=== PATIENT | male | born 1980 | race African-American/Black ===

== ENCOUNTER 2017-10-05 20:08 | Inpatient (IN) | payer SELFPAY ==
[~2017-10-05 20:08] MED LIST: ISOVUE-370 76%-LOCM 1 ML ONE
[2017-10-05 20:27] LABS: #Basophils 0.1 thou/uL (0.0-0.2); #Lymphocytes 2.4 thou/uL (1.20-3.40); #Monocytes 0.4 thou/uL (0.11-0.59); %Basophils 1.1 % (0.0-1.0); %Eosinophils 0.7 % (0.0-10.0); %Lymphocytes 34.6 % (21.0-51.0); %Monocytes 6.1 % (0.0-10.0); %Neutrophils 57.5 % (42.0-75.0); Hemoglobin 17.2 g/dL (14.0-18.0); Mean Corpuscular HGB CONC 32.9 g/dL (32.0-36.0); Mean Corpuscular Volume 94.3 fl (80.0-94.0); Mean Platelet Volume 7.3 fL (7.4-10.4); Platelet Count 191 thou/uL (130-400); RBC Distribution Width 12.4 % (11.5-14.5); Red Blood Cell (RBC) Count 5.55 mill/uL (4.70-6.10)
[2017-10-05 20:34] LABS: INR-International Normal Ratio 1.1; Prothrombin Time 14.8 SEC (12.0-14.7)
[2017-10-05 20:44] LABS: ALT (SGPT) 49 U/L (8-55); AST (SGOT) 83 U/L (5-34); Albumin 4.6 g/dL (3.5-5.0); Alcohol 35 mg/dL (Less than 10); Alkaline Phosphatase 75 U/L (40-150); Anion Gap 17 mmol/L (10-20); BUN (Urea Nitrogen) 12 mg/dL (8.9-20.6); Bilirubin, Total 0.8 mg/dL (0.2-1.2); Calc. Creatinine Clearance 0 mL/min (70-130); Calcium 9.6 mg/dL (7.8-10.44); Carbon Dioxide 23 mmol/L (22-29); Chloride 102 mmol/L (98-107); Estimated GFR-MDRD 57; Globulin 3.1 g/dL (2.4-3.5); Glucose 80 mg/dL (70-105); Potassium 3.9 mmol/L (3.5-5.1); Protein, Total 7.7 g/dL (6.0-8.3); Sodium 138 mmol/L (136-145)
[2017-10-05] MEDS ORDERED: fentaNYL Citrate/PF 2,000 MCG in Sodium Chloride 0.9% 60 ML IV SCH ×2 (20:45→21:40)
[2017-10-05 20:56] LABS: Acetaminophen Less than 6.0 mcg/mL (10.0-30.0); Alcohol 35 mg/dL (Less than 10); Salicylate Less than 8.0 mg/dL (15.0-30.0)
[2017-10-05] MEDS ORDERED: Propofol 1,000 MG/100 ML VIAL IV PRN (20:57)
[2017-10-05] MEDS ORDERED: Ondansetron ODT 4 MG TAB PO PRN (20:59)
[2017-10-05] MEDS ORDERED: Dextrose 5% in Water 1,000 ML IV PRN (20:59)
[2017-10-05] MEDS ORDERED: Dextrose 50% Abboject 50 ML SYRINGE SLOW IVP PRN (20:59)
[2017-10-05] MEDS ORDERED: Fentanyl 100 MCG/2 ML VIAL ONE (21:00)
[2017-10-05] MEDS ORDERED: Fentanyl CADD 250 ML IVPB SCH (21:00)
[2017-10-05] MEDS ORDERED: hydrALAZINE 20 MG/ML VIAL SLOW IVP PRN (21:05)
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
[2017-10-05 21:08] LABS: Bilirubin Negative (Negative); Blood, Urine Large (Negative); Clarity CLOUDY (Clear); Glucose, Urine (Dipstick) Negative (Negative); Leukocyte Negative (Negative); Nitrite Negative (Negative); Protein, Urine (Dipstick) 100 mg/dL (Neg-Trace)
[2017-10-05 21:11] LABS: RBC/HPF 21-50 HPF (0-3)
[2017-10-05 21:11] LABS: CO2 Tension 46.6 mmHg (35.0-45.0); Hematocrit-ABG 50.9 % (42.0-52.0); O2 Tension (PaO2) 131.5 mmHg (80.0-100.0); pH, Arterial 7.35 (7.35-7.45)
[2017-10-05 21:12] LABS: Analyzer IN Cardio ER; Calcium, Ionized 1.2 mmol/L (1.12-1.30); Hemoglobin (Hb) 16.1 g/dL (14.0-18.0); Puncture Site LRA
[2017-10-05 21:13] LABS: Pathc Cast-AUWi Flag 5.96 (0-2.49); Yeast-AUWi Flag 48.9 (0-25.0)
[2017-10-05] MEDS ORDERED: Propofol 1,000 MG/100 ML VIAL IV ONE (21:14)
[2017-10-05 21:18] LABS: Amphetamine Not Detected (NotDetected); Barbiturates Screen Not Detected (NotDetected); Benzodiazepine Screen Not Detected (NotDetected); Cocaine Metabolite Screen Not Detected (NotDetected); Medtox Control Line Valid? VALID (VALID); Medtox Reader # READER 4; Methadone Not Detected (NotDetected); Methamphetamine Not Detected (NotDetected); Opiate Screen Not Detected (NotDetected); Oxycodone Screen Not Detected (NotDetected); Phencyclidine (PCP) Not Detected (NotDetected); THC/Cannabinoid Screen Detected (NotDetected); Tricyclic Screen Not Detected (NotDetected)
[2017-10-05 21:20] LABS: Bacteria/HPF Rare-Few HPF (None Seen); Hyaline Casts/LPF 0-3 HYALINE CAST LPF (0-3 Hyaline); Manual Microscopic Reviewed? No Path Casts Seen; Renal Epithelial None Seen HPF (0-3); Transitional Epithelial NONE SEEN HPF (0-3); Yeast-All Forms None Seen HPF (None Seen)
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
[2017-10-05] MEDS ORDERED: Midazolam HCl 5 mg/ml Vial ONE ×2 (21:34→22:01)
[2017-10-05] MEDS ORDERED: Sedation Protocol FS ONE (21:34)
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
[2017-10-05] MEDS ORDERED: DISCONTINUE PREVIOUS NARCOTIC PAIN MEDICATIONS AND BENZODIAZEPINES FS SCH (21:40)
[2017-10-05] MEDS ORDERED: Morphine 2 MG/ML SYRINGE SLOW IVP PRN (21:40)
[2017-10-05] MEDS ORDERED: Fentanyl BOLUS 250 ML IVPB PRN (21:40)
[2017-10-05] MEDS ORDERED: Lorazepam 2 MG/ML VIAL SLOW IVP PRN (21:40)
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
[2017-10-05] MEDS: Sodium Chloride 0.9% 1,000 ML IV SCH (22:35)
[2017-10-05] MEDS: Famotidine/PF 20 mg/2ml Vial SLOW IVP SCH (22:36)
[2017-10-05] MEDS: Propofol 1,000 MG/100 ML VIAL IV PRN (22:43)
[2017-10-05 22:54] VITALS: BMI 20.8
[2017-10-06 00:26] LABS: Lactic Acid 2.5 mmol/L (0.5-2.2)
[2017-10-06] MEDS: Sodium Chloride 0.9% 1,000 ML IV SCH ×2 (03:10→11:25)
[2017-10-06] MEDS: Propofol 1,000 MG/100 ML VIAL IV PRN ×2 (03:10→06:39)
[2017-10-06] MEDS ORDERED: Sodium Chloride 0.9% 500 ML IV SCH (03:15)
[2017-10-06 05:06] LABS: #Lymphocytes 1.4 thou/uL (1.20-3.40); #Monocytes 0.5 thou/uL (0.11-0.59); #Neutrophils 4.2 thou/uL (1.40-6.50); %Basophils 0.5 % (0.0-1.0); %Eosinophils 0.3 % (0.0-10.0); %Lymphocytes 23.3 % (21.0-51.0); %Neutrophils 67.9 % (42.0-75.0); Hemoglobin 14.9 g/dL (14.0-18.0); Mean Corpuscular HGB CONC 33.2 g/dL (32.0-36.0); Mean Corpuscular Hemoglobin 31.5 pg (27.0-31.0); Mean Corpuscular Volume 94.9 fl (80.0-94.0); Mean Platelet Volume 7.5 fL (7.4-10.4); Platelet Count 175 thou/uL (130-400); RBC Distribution Width 12.3 % (11.5-14.5); Red Blood Cell (RBC) Count 4.72 mill/uL (4.70-6.10); White Blood Cell (WBC) Count 6.2 thou/uL (4.8-10.8)
[2017-10-06 05:31] LABS: Anion Gap 11 mmol/L (10-20); BUN (Urea Nitrogen) 12 mg/dL (8.9-20.6); Calc. Creatinine Clearance 114 mL/min (70-130); Calcium 8.5 mg/dL (7.8-10.44); Carbon Dioxide 26 mmol/L (22-29); Chloride 106 mmol/L (98-107); Estimated GFR-MDRD Greater than 90; Glucose 82 mg/dL (70-105); Phosphorus 3.7 mg/dL (2.3-4.7); Potassium 3.9 mmol/L (3.5-5.1); Sodium 139 mmol/L (136-145)
[2017-10-06] MEDS: Famotidine/PF 20 mg/2ml Vial SLOW IVP SCH (08:42)
[2017-10-06] MEDS: Ondansetron HCl/PF 4 MG/2 ML Vial IVP PRN ×2 (10:21→16:44)
[2017-10-06] MEDS ORDERED: Acetaminophen 500 MG TAB PO PRN (11:37)
[2017-10-06] MEDS ORDERED: traMADol HCl 50 MG TAB PO PRN (11:38)
[2017-10-06] MEDS ORDERED: Morphine 4 MG/ML VIAL SLOW IVP PRN (12:00)
[2017-10-06] MEDS ORDERED: Ibuprofen 600 MG TAB PO SCH (12:00)
[2017-10-06] MEDS ORDERED: traMADol HCl 50 MG TAB PO SCH (12:00)
[2017-10-06] MEDS: Ketorolac Tromethamine 30 MG/ML VIAL IVP SCH ×2 (12:09→16:44)
[2017-10-06] MEDS ORDERED: Scopolamine 1.5 mg/72 hour Patch TOP SCH (13:30)
[2017-10-06] MEDS ORDERED: Metoclopramide HCl 10 MG/2 ML VIAL IVP SCH (16:00)
[2017-10-06] MEDS: Acetaminophen 1,000 MG in Premix Bag 1 BAG IVPB SCH (16:45)
[2017-10-06] MEDS ORDERED: Lorazepam 2 MG/ML VIAL SLOW IVP SCH (17:45)
[2017-10-06] MEDS ORDERED: Fentanyl 100 MCG/2 ML VIAL ONE (17:56)
[2017-10-06] MEDS ORDERED: levETIRAcetam In NaCl (Iso-Os) 1,000 MG in Premix Bag 1 BAG IVPB SCH ×2 (18:00)
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
[2017-10-06] MEDS: Famotidine 20 MG TAB PO SCH (21:46)
[2017-10-07] MEDS: Ketorolac Tromethamine 30 MG/ML VIAL IVP SCH ×5 (00:57→14:09)
[2017-10-07] MEDS: Acetaminophen 1,000 MG in Premix Bag 1 BAG IVPB SCH ×5 (00:57→15:31)
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
--- NOTE | 2017-10-07 08:48 | ADD-PRG ---
ADDENDUM At approximately 6:00 p.m. this evening, I was called to the patient's room with report of possible o ngoing seizure. Upon arrival to the patient's room, the patient was shaking and unresponsive to verb al commands. He was unresponsive to sternal rub. His pupils were reactive, but small at approximate ly 2 mm. His eyes were rolling back in his head. He did not lose bowel or bladder function. This e pisode lasted approximately 3 minutes at which time the patient continued to shake but started to res pond to commands and was able to semi-verbalize complaint of pain. He was able to localize the pain to his right anterior chest. Ativan 2 mg of was given at bedside. Dr. Frost in Neurology was cons ulted. The patient remained in that state for a couple of more minutes after he was given the Ativan . For a brief time after this, he did appear postictal, but it was unclear whether this was an effec t of the Ativan or a postictal state from the seizure. Shortly after that, he was alert and conversa tional, able to articulate his complaints. He was reporting feeling much better. PLAN: After speaking with Dr. Frost, patient was given 1 gram of Keppra and started on 1 gram of K eppra b.i.d. Prolactin BMP and lipase were ordered. Serum lipase is ordered given the patient's yue vated amylase and ongoing nausea. Dr. Frost reports that he will see the patient on rounds tomorro w. As of this dictation, the patient is now stable on the floor.
[2017-10-07] MEDS ORDERED: Enoxaparin Sodium 40 MG/0.4 ML SYRINGE SC SCH (09:00)
[2017-10-07] MEDS ORDERED: levETIRAcetam In NaCl (Iso-Os) 1,000 MG in Premix Bag 1 BAG IVPB SCH ×2 (09:00)
[2017-10-07] MEDS: Famotidine 20 MG TAB PO SCH (09:17)
--- NOTE | 2017-10-07 10:32 | EEG ---
Referring Physician: CONOR LU EEG # [id number] TEST TYPE: PORTABLE INPATIENT REPORT: AN EEG USING THE INTERNATIONAL TEN-TWENTY SYSTEM OF ELECTRODE PLACEMENT WAS PERFORMED. The background activity is a low amplitude 9 hertz alpha frequency. The patient appeared to be drowsy during the study. No sleep transients were noted. No epileptiform features were present. Photic stimulation was unremarkable. IMPRESSION: THIS IS A NORMAL AWAKE AND DROWSY investigations chief: GLENDA Nurse Executive: EEG.BAN GIANG
[2017-10-07 16:37] VITALS: TEMP 98.4
[2017-10-07 17:16] VITALS: BP 108/72
[2017-10-07] MEDS ORDERED: Acetaminophen 500 MG TAB PO SCH (18:00)
[2017-10-07] MEDS ORDERED: Ketorolac Tromethamine 30 MG/ML VIAL IVP SCH (20:00)
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
[2017-10-07] MEDS ORDERED: Ibuprofen 600 MG TAB PO SCH (22:00)
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
== END 2017-10-07 18:33 | disposition home or self-care (01) | DRG 88 ==
LOC: ERS 20:08 → CCU 20:34 → SURG A 10-06 16:38
PROVIDERS: ADMIT Surgery; ATTEND Surgery
PROC: 5A1935Z Respiratory Ventilation, Less than 24 Consecutive Hours (ICD-10-PCS; principal; 2017-10-05)
PROC: 0BH17EZ Insertion of Endotracheal Airway into Trachea, Via Natural or Artificial Opening (ICD-10-PCS; 2017-10-05)
DX: S06.0X9A Concussion with loss of consciousness of unspecified duration, initial encounter (principal); J96.00 Acute respiratory failure, unspecified whether with hypoxia or hypercapnia; R56.1 Post traumatic seizures; S20.219A Contusion of unspecified front wall of thorax, initial encounter; K11.7 Disturbances of salivary secretion; V86.59XA Driver of other special all-terrain or other off-road motor vehicle injured in nontraffic accident, initial encounter; Y93.89 Activity, other specified; Y92.89 Other specified places as the place of occurrence of the external cause; J34.89 Other specified disorders of nose and nasal sinuses; R40.2432 Glasgow coma scale score 3-8, at arrival to emergency department; Z79.82 Long term (current) use of aspirin; F17.210 Nicotine dependence, cigarettes, uncomplicated
CPT/HCPCS: 31500; 36415; 36416; 70450; 70551; 71045; 71260; 72125; 74177; 80048; 80053; 80306; 80307; 81003; 81015; 82150; 82482; 82805; 83605; 83690; 83735; 84100; 84146; 85025; 85610; 85730; 86850; 86900; 86901; 94002; 94003; 94640; 95816; 95819; 96361; 96365; 96375; 96376; 99292; A4216; G0390; G8978-GP-CK; G8979-GP-CH; G8987-GO-CK; G8988-GO-CI; J0131; J1650; J1885; J1953; J2060; J2250; J2270; J2405; J2704; J2765; J3010; J7050; J7620; S0028